=== PATIENT | female | born 2000 | race American Indian/Alaskan Native ===

== ENCOUNTER 2021-07-25 16:02 | Emergency (ER) | payer MEDICAID ==
[2021-07-25] MEDS ORDERED: ZIPRASIDONE MESYLATE 20 MG VIAL IM ONE ×2 (16:38→16:53)
--- NOTE | 2021-07-25 20:04 | Emergency Department Report ---
ED Psych HPI - General Chief Complaint: Psych Stated Complaint: PARANOIA/HYPERTENSIVE Time Seen by Provider: 07/25/21 16:14 Source: EMS Mode of arrival: Ambulatory Limitations: Other (DELUSIONS) - History of Present Illness Initial Comments: ems CALLED FOR PARANOID DELUSIONS BY FAMILY , PT IS ANXIOUS RESPONDING TO INTERNAL STIMULI, DENIES AND si OR hi BUT ADMIT TO HEARING VOICES, NO PREVIOUS HISTORY REFUSING MEDICAL HELP AND GETS MANIC AND YAZIDISM ASKING FOR HER PREACH MD Complaint: other (PARANOID DELUSION ) -: Gradual Associated Psychiatric Symptoms: racing thoughts, auditory hallucinations, delusions History of same: No Quality: constant Improves With: none Worsens With: none - Related Data Allergies Allergy/AdvReac Type Severity Reaction Status Date / Time sulfamethoxazole AdvReac Unknown Verified 07/25/21 16:05 [From Bactrim] trimethoprim [From Bactrim] AdvReac Unknown Verified 07/25/21 16:05 ED Review of Systems ROS: Stated complaint: PARANOIA/HYPERTENSIVE Other details as noted in HPI Constitutional: denies: chills, fever Eyes: denies: eye pain, eye discharge, vision change ENT: denies: ear pain, throat pain Respiratory: denies: cough, shortness of breath, wheezing Cardiovascular: denies: chest pain, palpitations Endocrine: no symptoms reported Gastrointestinal: denies: abdominal pain, nausea, diarrhea Genitourinary: denies: urgency, dysuria, discharge Musculoskeletal: denies: back pain, joint swelling, arthralgia Skin: denies: rash, lesions Neurological: denies: headache, weakness, paresthesias Psychiatric: denies: anxiety, depression Hematological/Lymphatic: denies: easy bleeding, easy bruising ED Past Medical Hx - Past Medical History Previous Medical History?: No Hx Hypertension: No ED Physical Exam - General Limitations: Other General appearance: alert, anxious - Head Head exam: Present: atraumatic, normocephalic - Eye Eye exam: Present: normal appearance - ENT ENT exam: Present: mucous membranes moist - Neck Neck exam: Present: normal inspection - Respiratory Respiratory exam: Present: normal lung sounds bilaterally. Absent: respiratory distress - Cardiovascular Cardiovascular Exam: Present: regular rate, normal rhythm. Absent: systolic murmur, diastolic murmur, rubs, gallop - GI/Abdominal GI/Abdominal exam: Present: soft, normal bowel sounds - Extremities Exam Extremities exam: Present: normal inspection - Back Exam Back exam: Present: normal inspection - Neurological Exam Neurological exam: Present: alert, oriented X3 - Psychiatric Psychiatric exam: Present: anxious, manic - Skin Skin exam: Present: warm, dry, intact, normal color. Absent: rash ED Course Vital Signs 07/25/21 07/25/21 07/25/21 16:03 17:17 20:16 Temperature 98 F 97.7 F Pulse Rate 111 H 78 Respiratory 20 18 Rate Blood Pressure 194/136 131/101 [Left] O2 Sat by Pulse 97 99 99 Oximetry 07/26/21 07/26/21 09:33 09:34 Temperature 98.2 F Pulse Rate 98 H Respiratory 18 Rate Blood Pressure 144/98 [Left] O2 Sat by Pulse 98 98 Oximetry ED Medical Decision Making - Lab Data Result diagrams: 07/25/21 20:23 07/25/21 20:23 Critical care attestation.: If time is entered above; I have spent that time in minutes in the direct care of this critically ill patient, excluding procedure time. ED Disposition Clinical Impression: Psychosis Disposition: [address] [place] [address] Is pt being admited?: No Does the pt Need Aspirin: No Condition: Stable Referrals: NEO CHEW MD [Primary Care Provider] - 3-5 Days
[2021-07-25 20:37] LABS: Basophils # (Auto) 0.2 K/mm3 (0.0-0.1); Basophils % (Auto) 2.9 % (0.0-1.8); Eosinophils # (Auto) 0.1 K/mm3 (0.0-0.4); Hematocrit 35.8 % (30.3-42.9); Lymphocytes # (Auto) 1.1 K/mm3 (1.2-5.4); Lymphocytes % (Auto) 15.4 % (13.4-35.0); Mean Corpuscular HGB Conc 33 % (30-34); Mean Corpuscular Volume 83 fl (79-97); Monocytes # (Auto) 0.3 K/mm3 (0.0-0.8); Monocytes % (Auto) 4.4 % (0.0-7.3); Platelet Count 407 K/mm3 (140-440); Red Blood Count 4.33 M/mm3 (3.65-5.03)
[2021-07-25 20:54] LABS: Blood Urea Nitrogen 10 mg/dL (7-17); Calcium 9.9 mg/dL (8.4-10.2); Hemolysis Index 3
[2021-07-25 21:04] LABS: BUN/Creatinine Ratio 14
[2021-07-26 09:02] LABS: Benzodiazepines Screen,Urine Negative; Cannabinoid Screen,Urine Negative; Cocaine Screen,Urine Negative; Methadone Screen,Urine Negative; Opiate Screen,Urine Negative
[2021-07-26 09:16] LABS: Amphetamine Screen,Urine Positive
[2021-07-26 09:18] LABS: Bilirubin,Urine Negative (Negative); Color,Urine Yellow (Yellow)
[2021-07-26 09:19] LABS: Blood,Urine Moderate (Negative); Protein,Urine <15 mg/dL mg/dL (Negative); Urobilinogen,Urine < 2.0 mg/dL (<2.0)
[2021-07-26 09:21] LABS: RBC,Urine < 1.0 /HPF (0.0-6.0); WBC,Urine < 1.0 /HPF (0.0-6.0)
[2021-07-26 09:34] VITALS: BP 144/98
--- NOTE | 2021-07-26 11:39 | Consultation ---
History of Present Illness - Reason for Consult Consult date: 07/26/21 Reason for consult: psychosis - History of Present Psychiatric Illness The patient is a 21 year old female with history of psychosis. In my encounter with the patient, she presents with paranoia and disorganized thoughts. The patient states she is trying to get away from the house " I feel like people are hiding stuff from me; I'm around a lot of witch craft and I'm trying to get way." PAST PSYCHIATRIC HISTORY Diagnoses: Psychosis Suicide attempts or Self-harm behavior: Denies Prior psychiatric hospitalizations: Yes Substance Abuse history: Denies Previous psychiatric medications tried: unable to recall Outpatient treatment: Unknown PAST MEDICAL HISTORY: None reported Family Psychiatric History: None reported or documented SOCIAL HISTORY Marital Status: Living Arrangements: Lives with and sister inlaw Employment Status: Unemployed Access to guns/weapons: Denies Education:12th grade History of Abuse: none reported Legal History: none REVIEW OF SYSTEMS Constitutional: Negative for weight loss ENT: Negative for stridor Respiratory: Negative for cough or hemoptysis All other systems reviewed and are negative MENTAL STATUS EXAMINATION General Appearance and Behavior: Age appropriate, wearing appropriate clothes, fair eye contact, Cooperation: Engaged Psychomotor Behavior: Psychomotor normal Mood: disorganized Affect and affective range: congruent with stated mood Thought Process: Circumstantial Thought Content: Disorganized/ paranoid Speech: Normal tone and pace Suicidal Ideation: Denies Homicidal Ideation: Denies Hallucinations: Denies Delusions:paranoid Insight and Judgment: Limited insight and judgment Memory: Normal Attention: divided attention impaired Orientation: Alert, oriented Assessment: (1) Psychosis 1013 Treatment Plan Continue home medications. Zyprexa 10mg po daily Risks, benefits and alternatives of medications discussed with the patient, questions answered and consent obtained from patient. PSYCHOTHERAPY: Supportive psychotherapy provided MEDICAL: Per primary team DELIRIUM PRECAUTIONS: Please re-orient patient frequently, keep lights on during the day, and minimize benzodiazepines and opiates as these medications could worsen patient's confusion. SPORTS ANNOUNCER: per primary DISPOSITION: Recommend acute psychiatric inpatient treatment. Will follow. Thanks Thank you for the consult. Case discussed with Dr. Garcia who agrees with current disposition Medications and Allergies Medications and Allergies Allergies Allergy/AdvReac Type Severity Reaction Status Date / Time sulfamethoxazole AdvReac Unknown Verified 07/25/21 16:05 [From Bactrim] trimethoprim [From Bactrim] AdvReac Unknown Verified 07/25/21 16:05 Mental Status Exam - Vital signs Last Vital Signs Temp 98.2 F 07/26/21 09:33 Pulse 98 H 07/26/21 09:33 Resp 18 07/26/21 09:33 BP 144/98 07/26/21 09:33 Pulse Ox 98 07/26/21 09:34 Results Result Diagrams: 07/25/21 20:23 07/25/21 20:23 Abnormal lab results 07/25/21 07/25/21 07/25/21 Range/Units 20:23 20:23 20:23 Baso % (Auto) 2.9 H (0.0-1.8) % Lymph # (Auto) 1.1 L (1.2-5.4) K/mm3 Baso # (Auto) 0.2 H (0.0-0.1) K/mm3 Seg Neutrophils % 76.3 H (40.0-70.0) % Ur Specific [place] (1.003-1.030) Urine Blood (Negative) Salicylates < 0.3 L (2.8-20.0) mg/dL Acetaminophen 5.0 L (10.0-30.0) ug/mL 07/26/21 Range/Units Unknown Baso % (Auto) (0.0-1.8) % Lymph # (Auto) (1.2-5.4) K/mm3 Baso # (Auto) (0.0-0.1) K/mm3 Seg Neutrophils % (40.0-70.0) % Ur Specific [place] 1.035 H (1.003-1.030) Urine Blood Moderate A (Negative) Salicylates (2.8-20.0) mg/dL Acetaminophen (10.0-30.0) ug/mL All other labs normal.
--- NOTE | 2021-07-26 12:07 | Emergency Department Report ---
Blank Doc - Documentation Documentation: Patient has been medically cleared. Psychiatric evaluation was complete and the plan is to admit the patient from a psychiatric standpoint due to the psychosis and hallucinations.
[2021-07-26 12:30] LABS: HCG Qualitative,Urine Negative (Negative)
== END 2021-07-26 14:09 ==
LOC: ED 16:02
DX: F22 Delusional disorders (principal); Z20.822 Contact with and (suspected) exposure to COVID-19; Z79.899 Other long term (current) drug therapy; Z88.2 Allergy status to sulfonamides
CPT/HCPCS: 36415; 80048; 80307; 81001; 81025; 85025; 96372; 99285; J3486; U0003; 80320; G0480

== ENCOUNTER 2021-08-26 16:26 | Emergency (ER) | payer MEDICAID ==
[2021-08-26] MEDS ORDERED: ZIPRASIDONE MESYLATE 20 MG VIAL IM ONE ×2 (16:28→16:31)
--- NOTE | 2021-08-26 16:35 | Emergency Department Report ---
ED Psych HPI - General Chief Complaint: Psych Stated Complaint: PARASITES COMING FROM MY HEAD Source: patient, EMS - History of Present Illness Initial Comments: Patient is 21 years old female with history of hypertension and psychosis. Patient brought to the emergency room via EMS from home for mental health evaluation. EMS reported that patient called and stated that she is having parasites coming out of her skin. Upon arrival to the ER patient is very anxious and agitated and looking around. Patient is paranoid and with disorganized thoughts. Patient is pointing to a clear skin and saying that the parasite coming out of her skin. She denied suicidal homicidal ideation. She also denied any auditory or visual hallucination. Patient found to have a significantly elevated blood pressure. Patient received Geodon 20 mg IM for acute psychosis. Complaint: altered mental status - Related Data Allergies Allergy/AdvReac Type Severity Reaction Status Date / Time sulfamethoxazole AdvReac Unknown Verified 07/25/21 16:05 [From Bactrim] trimethoprim [From Bactrim] AdvReac Unknown Verified 07/25/21 16:05 ED Review of Systems ROS: Stated complaint: PARASITES COMING FROM MY HEAD Other details as noted in HPI Comment: All other systems reviewed and negative Constitutional: denies: chills, fever Respiratory: denies: cough, shortness of breath, SOB with exertion, SOB at rest Cardiovascular: denies: chest pain, palpitations Gastrointestinal: denies: abdominal pain, nausea, vomiting, diarrhea, constipation, hematemesis, melena, hematochezia Musculoskeletal: denies: back pain Neurological: denies: headache, weakness, numbness, confusion, abnormal gait Psychiatric: visual hallucinations. denies: auditory hallucinations, homicidal thoughts, suicidal thoughts ED Past Medical Hx - Past Medical History Hx Hypertension: No ED Physical Exam - General General appearance: alert, anxious, other (agitated) - Head Head exam: Present: atraumatic - ENT ENT exam: Present: normal exam, normal orophraynx, mucous membranes moist - Neck Neck exam: Present: normal inspection, full ROM. Absent: tenderness, meningismus - Respiratory Respiratory exam: Present: normal lung sounds bilaterally - Cardiovascular Cardiovascular Exam: Present: regular rate, normal rhythm, normal heart sounds - GI/Abdominal GI/Abdominal exam: Present: soft, normal bowel sounds. Absent: distended, tenderness, guarding, rebound, rigid, organomegaly, mass, bruit, pulsatile mass, hernia - Extremities Exam Extremities exam: Present: normal inspection, full ROM, normal capillary refill. Absent: tenderness, pedal edema, joint swelling, calf tenderness - Back Exam Back exam: Present: normal inspection, full ROM. Absent: CVA tenderness (R), CVA tenderness (L) - Neurological Exam Neurological exam: Present: alert, oriented X3, CN II-XII intact, normal gait, reflexes normal. Absent: motor sensory deficit - Psychiatric Psychiatric exam: Present: agitated, anxious. Absent: homicidal ideation, s uicidal ideation - Skin Skin exam: Present: warm, intact, normal color Critical care attestation.: If time is entered above; I have spent that time in minutes in the direct care of this critically ill patient, excluding procedure time. ED Disposition Condition: Stable
[2021-08-26 18:32] LABS: Basophils % (Auto) 0.3 % (0.0-1.8); Eosinophils % (Auto) 0.4 % (0.0-4.3); Hematocrit 36.8 % (30.3-42.9); Hemoglobin 12.2 gm/dl (10.1-14.3); Lymphocytes # (Auto) 1.7 K/mm3 (1.2-5.4); Lymphocytes % (Auto) 23.1 % (13.4-35.0); Mean Corpuscular HGB Conc 33 % (30-34); Mean Corpuscular Volume 82 fl (79-97); Monocytes # (Auto) 0.5 K/mm3 (0.0-0.8); Monocytes % (Auto) 7.2 % (0.0-7.3); Platelet Count 455 K/mm3 (140-440); Red Cell Distribution Width 14.3 % (13.2-15.2)
[2021-08-26 18:44] LABS: BUN/Creatinine Ratio 11; Blood Urea Nitrogen 9 mg/dL (7-17); Calcium 9.3 mg/dL (8.4-10.2); Hemolysis Index 0
[2021-08-26] MEDS ORDERED: HALOPERIDOL LACTATE 5 MG/1 ML INJ IM ONE (19:40)
[2021-08-26] MEDS: LORazepam 2 MG/ML VIAL IM ONE (19:54)
[2021-08-27] MEDS: LORazepam 2 MG/ML VIAL IM ONE (09:03)
--- NOTE | 2021-08-27 10:22 | Consultation ---
History of Present Illness - Reason for Consult Consult date: 08/27/21 Reason for consult: psychosis - History of Present Psychiatric Illness The patient was seen today. She is delusional and paranoid. She says she "has a magazine coming out of her head." She says her "ear is stuffed with stuff." The patient then says "I have no right to be back here. I have a psychiatrist and a therapist." She denies SI/HI or hallucinations. The patient did endorse using methamphetamines a couple of days ago. PAST PSYCHIATRIC HISTORY Diagnoses: Psychosis Suicide attempts or Self-harm behavior: Denies Prior psychiatric hospitalizations: Yes Substance Abuse history: Methamphetamine Previous psychiatric medications tried: Latuda, trazodone Outpatient treatment: Yes PAST MEDICAL HISTORY: None reported Family Psychiatric History: None reported or documented SOCIAL HISTORY Living arrangement: with Marital status: Employment status: employed REVIEW OF SYSTEMS Constitutional: Negative for weight loss ENT: Negative for stridor Respiratory: Negative for cough or hemoptysis All other systems reviewed and are negative MENTAL STATUS EXAMINATION General Appearance and Behavior: Age appropriate, good hygiene, wearing appropriate clothes, poor eye contact, irritable, cooperative Cooperation: Participating/engaged, but Guarded Psychomotor Behavior: Psychomotor normal Mood: upset Affect and affective range: flat Thought Process: disorganized, illogical Thought Content: delusions Speech: normal tone and pace Suicidal Ideation: Denies Homicidal Ideation: Denies Hallucinations: Denies Delusions: None elicited Impulse Control: Normal Insight and Judgment: Limited insight and judgment Memory: Limited Attention: divided Orientation: Alert, oriented Assessment and Plan Delusional Disorder Treatment Plan 1013 Trazodone 50mg po qhs Olanzapine 5mg po daily Sitter: per primary Medical: defer to primary Disposition: Recommend acute psychiatric inpatient treatment. Will follow. Thanks Case staffed with Dr. Garcia Medications and Allergies Allergies Allergy/AdvReac Type Severity Reaction Status Date / Time sulfamethoxazole AdvReac Unknown Verified 07/25/21 16:05 [From Bactrim] trimethoprim [From Bactrim] AdvReac Unknown Verified 07/25/21 16:05 Mental Status Exam - Vital signs Last Vital Signs Temp 98.5 F 08/27/21 02:27 Pulse 84 08/27/21 02:27 Resp 16 08/27/21 02:27 BP 108/61 08/27/21 02:27 Pulse Ox 98 04/10/22 02:27 Results Result Diagrams: 08/26/21 18:15 08/26/21 18:15 Abnormal lab results 08/26/21 08/26/21 08/26/21 Range/Units 18:15 18:15 18:15 MCH 27 L (28-32) pg Plt Count 455 H (140-440) K/mm3 Glucose 138 H (65-100) mg/dL Salicylates < 0.3 L (2.8-20.0) mg/dL Acetaminophen (10.0-30.0) ug/mL 08/26/21 Range/Units 18:15 MCH (28-32) pg Plt Count (140-440) K/mm3 Glucose (65-100) mg/dL Salicylates (2.8-20.0) mg/dL Acetaminophen 5.0 L (10.0-30.0) ug/mL All other labs normal.
[2021-08-27 10:30] LABS: Bilirubin,Urine NEG (Negative); Blood,Urine NEG (Negative); Color,Urine Yellow (Yellow); Protein,Urine <15 mg/dL mg/dL (Negative)
[2021-08-27 10:37] LABS: Benzodiazepines Screen,Urine Negative; Cannabinoid Screen,Urine Negative; Cocaine Screen,Urine Negative; Methadone Screen,Urine Negative; Opiate Screen,Urine Negative
[2021-08-27 10:53] LABS: Amphetamine Screen,Urine Positive
--- NOTE | 2021-08-27 14:39 | Emergency Department Report ---
Blank Doc - Documentation Documentation: I have rounded on the patient. Today patient complains of right ear pain. Has presented here. She has no evidence of otitis media. She may have symptoms of otitis externa. Given this I have ordered Ciprodex. Patient still has delusions and is paranoid. She is on a 1013. She is awaiting acute inpatient psychiatry placement.
[2021-08-27] MEDS ORDERED: CIPROFLOXACIN/DEXAMETH OTIC SUSP 7.5ML AD SCH (15:00)
[2021-08-27] MEDS ORDERED: traZODone 50 MG TAB PO SCH (22:00)
--- NOTE | 2021-08-28 09:32 | Progress Note ---
Subjective - Reason for Consult Consult date: 08/28/21 Reason for consult: psychosis - Chief Complaint Chief complaint: The patient was seen today. She says she's feeling better, but still complaining of "stuff in her ear." She denies SI/HI or hallucinations of any kind. REVIEW OF SYSTEMS Constitutional: Negative for weight loss ENT: Negative for stridor Respiratory: Negative for cough or hemoptysis All other systems reviewed and are negative MENTAL STATUS EXAMINATION General Appearance and Behavior: Age appropriate, good hygiene, wearing appropriate clothes, poor eye contact, irritable, cooperative Cooperation: Participating/engaged, but Guarded Psychomotor Behavior: Psychomotor normal Mood: upset Affect and affective range: flat Thought Process: disorganized, illogical Thought Content: delusions Speech: normal tone and pace Suicidal Ideation: Denies Homicidal Ideation: Denies Hallucinations: Denies Delusions: None elicited Impulse Control: Normal Insight and Judgment: Limited insight and judgment Memory: Limited Attention: divided Orientation: Alert, oriented Assessment and Plan Delusional Disorder Treatment Plan 1013 Trazodone 50mg po qhs Olanzapine 5mg po daily Sitter: per primary Medical: defer to primary Disposition: Recommend acute psychiatric inpatient treatment. Will follow. Thanks Case staffed with Dr. Garcia Mental Status Exam - Vital signs Last Vital Signs Temp 98.5 F 08/28/21 02:22 Pulse 84 08/28/21 02:22 Resp 18 08/28/21 02:22 BP 101/73 08/28/21 02:22 Pulse Ox 100 08/28/21 02:22
[2021-08-28 11:04] VITALS: BP 126/89
== END 2021-08-28 10:55 ==
LOC: ED 16:26
DX: R41.82 Altered mental status, unspecified (principal); Z20.822 Contact with and (suspected) exposure to COVID-19
CPT/HCPCS: 36415; 80048; 80307; 81001; 84703; 85025; 96372; 99284; J2060; J3486; U0003; 80320; G0480; J1630

== ENCOUNTER 2022-01-21 13:24 | Emergency (ER) | payer MEDICAID ==
[2022-01-21 14:08] VITALS: BP 84/50
== END 2022-01-21 14:16 | disposition left against medical advice (07) ==
LOC: ED 13:24
DX: Z13.30 Encounter for screening examination for mental health and behavioral disorders, unspecified (principal); Z53.21 Procedure and treatment not carried out due to patient leaving prior to being seen by health care provider

== ENCOUNTER 2022-01-22 01:53 | Emergency (ER) | payer MEDICAID ==
[2022-01-22] MEDS ORDERED: ZIPRASIDONE MESYLATE 20 MG VIAL IM ONE (01:58)
[2022-01-22] MEDS ORDERED: LORazepam 2 MG/ML VIAL IM ONE (01:59)
[2022-01-22 03:16] LABS: Basophils # (Auto) 0.1 K/mm3 (0.0-0.1); Basophils % (Auto) 0.9 % (0.0-1.8); Eosinophils # (Auto) 0.1 K/mm3 (0.0-0.4); Eosinophils % (Auto) 1.1 % (0.0-4.3); Hematocrit 34.6 % (30.3-42.9); Hemoglobin 11.3 gm/dl (10.1-14.3); Lymphocytes # (Auto) 2.2 K/mm3 (1.2-5.4); Lymphocytes % (Auto) 27.4 % (13.4-35.0); Mean Corpuscular HGB Conc 33 % (30-34); Mean Corpuscular Volume 81 fl (79-97); Monocytes # (Auto) 0.9 K/mm3 (0.0-0.8); Monocytes % (Auto) 11.5 % (0.0-7.3); Platelet Count 451 K/mm3 (140-440); Red Blood Count 4.25 M/mm3 (3.65-5.03); Red Cell Distribution Width 14.4 % (13.2-15.2)
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
[2022-01-22 03:36] LABS: BUN/Creatinine Ratio 17; Blood Urea Nitrogen 17 mg/dL (7-17); Hemolysis Index 3
[2022-01-22 04:54] LABS: Free T4 (Free Thyroxine) 1.06 ng/dL (0.76-1.46)
[2022-01-22] MEDS ORDERED: POTASSIUM CHLORIDE ER 20 MEQ TAB PO ONE (05:51)
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
[2022-01-22] MEDS ORDERED: buPROPion XL 150 MG TAB PO SCH (11:00)
--- NOTE | 2022-01-22 11:41 | Event Note ---
Date: 01/22/22 vss, no distress, medically cleared psych assessed recommends acute inpatient psych
[2022-01-22 12:53] LABS: Bacteria,Urine 1+ /HPF (Negative); Benzodiazepines Screen,Urine Negative; Cannabinoid Screen,Urine Negative; Methadone Screen,Urine Negative; Mucus,Urine 1+ /HPF; Opiate Screen,Urine Negative
[2022-01-22 13:04] LABS: Color,Urine Yellow (Yellow)
[2022-01-22 13:05] LABS: Amphetamine Screen,Urine Positive; Cocaine Screen,Urine Positive
[2022-01-22 16:28] VITALS: BP 106/66
== END 2022-01-22 16:32 | disposition still patient (30) ==
LOC: ED 01:53
DX: Z04.6 Encounter for general psychiatric examination, requested by authority (principal); F29 Unspecified psychosis not due to a substance or known physiological condition; Z20.822 Contact with and (suspected) exposure to COVID-19; Z79.899 Other long term (current) drug therapy
CPT/HCPCS: 36415; 80048; 80307; 81001; 82962; 84439; 84443; 84703; 85025; 87086; 96372; 99285; J2060; J3486; U0003; 80320; G0480